=== PATIENT | male | born 1990 | race Hispanic/Latino ===

== ENCOUNTER 2024-12-15 12:29 | Emergency (ER) | payer OTHER ==
[~2024-12-15] VITALS: Ht 172.7 cm; Wt 106.1 kg
[2024-12-15 13:19] LABS: CREATININE 1.0 mg/dL (0.5-1.3); GLOMERULAR FILTR. RATE CALC 101.0 mL/min (>90); GLUCOSE,RANDOM 134.0 mg/dL (70-105); SODIUM SERUM 139.0 mmol/L (136-145); UREA NITROGEN, BLOOD 8.0 mg/dL (7-18)
[2024-12-15 13:22] LABS: IMMATURE GRANULOCYTE ABSOLUTE 0.02 K/uL (0-1); NUCLEATED RED BLOOD CELLS 0.0 % (0.0-0.19); PLATELET COUNT (AUTO) 290 K/uL (130-400); RED BLOOD CELL COUNT(AUTO) 5.29 MIL/uL (4.50-6.20); RED CELL DISTRIBUTION WIDTH 12.2 % (11.0-15.5); WHITE BLOOD COUNT (AUTO) 6.7 K/uL (4.8-10.8)
[2024-12-15] MEDS ORDERED: IOHEXOL-350 75 ML VIAL IV ONE (13:34)
[2024-12-15 13:48] LABS: APPEARANCE,URINE CLEAR (CLEAR); GLUCOSE, URINE (UA) NEGATIVE (NEGATIVE); LEUKOCYTE ESTERASE ,URINE NEGATIVE Leu/uL (NEGATIVE); NITRATE,URINE NEGATIVE (NEGATIVE); OCCULT BLOOD,URINE NEGATIVE (NEGATIVE)
[2024-12-15 13:57] LABS: ADD UA MICROSCOPIC NO
--- NOTE | 2024-12-15 13:59 | HMCIMG ---
EXAM: US Scrotum. CLINICAL HISTORY: testicual pain TECHNIQUE: Real-time ultrasound of the scrotum with color Doppler and image documentation. COMPARISON: None provided. FINDINGS: RIGHT TESTICLE: Normal in size and echogenicity, no abnormal mass. Normal Doppler flow. LEFT TESTICLE: Normal in size and echogenicity, no abnormal mass. Normal Doppler flow. EPIDIDYMIDES: The epididymes are normal in size and demonstrate Doppler flow within normal limits. SCROTUM: Inguinal hernia is seen on the left side with herniation of omental fat, measures approximately 3 x 1.4 x 2 cm. Dilated left pampiniform plexus of vein measuring 4 mm. No hydrocele or extratesticular mass seen. IMPRESSION: 1. Left inguinal hernia with herniation of omental fat. This may be further characterized with contrast-enhanced CT imaging of the abdomen and pelvis. 2. Left varicocele. /[place]
--- NOTE | 2024-12-15 14:32 | ERN ---
ED Note History of Present Illness Stated Complaint: ABD PAIN Chief Complaint: Abdominal Pain Time Seen by MD: 12:35 Time Seen by Midlevel: 12:38 Dictation: 34-year-old male coming in from the OR clinic for evaluation of bilateral testicular pain and bilateral lower abdominal pain going on for the last two months. Patient denies any fever, nausea vomiting or diarrhea. Past Medical History Past Medical History: Migraines Surgical History: None Review of System Dictation Constitutional: Negative for fever,chills, and weight loss Eyes: Negative for injury, pain,redness, and discharge ENT: Negative for injury,pain or swelling Cardiovascular: Negative for chest pain, palpitations, and edema Respiratory: Negative for shortness of breath, cough, and wheezing, Abdomen/GI: Lower abdominal pain Back: Negative for injury and pain : Negative for injury, bleeding and discharge, complaining of loud testicular pain MS/Extremity: Negative for injury and deformity Skin: Negative for rash, and discoloration Neuro: Negative for headache, weakness, numbness, tingling, and seizure Psych: Negative for suicide ideation, homicidal ideation, and hallucinations Review of Systems: was completed Initial Vital Sign VS Vital Signs Date Time Temp Pulse Resp B/P (MAP) Pulse Ox O2 Delivery O2 Flow Rate FiO2 12/15/24 12:35 98.2 87 18 119/66 99 12/15/24 14:42 Room Air* 0 21 Physical Exam Dictation General: awake, alert, NAD Head/Face: Normocephalic, atraumatic Eyes: PERRL, EOMI, vision at baseline ENT: oral cavity clear, TMs clear, no signs of infection Neck: Trachea midline, supple, no nuchal rigidity Cardiovascular: RRR, normal S1/S2, No MRGs, no JVD Respiratory: CTAB, no respiratory distress, No rales or wheezes Abdomen: Soft, non-tender, non-distended, normal bowel sounds, no guarding or rebound. Skin: Warm, dry, normal turgor, no rash MS/Extremity: Pulses equal, no cyanosis, neurovascular intact, FROM Neuro: COAx4, GCS 15, strength 5/5, CN 2-12 intact, normal cerebellar exam, normal gait, Psych: Normal behavior, mood, and affect normal Results (Laboratory/Radiology) Laboratory/Radiology Laboratory Tests Test 12/15/24 12:49 12/15/24 13:04 White Blood Count 6.7 K/uL (4.8-10.8) Red Blood Count 5.29 MIL/uL (4.50-6.20) Hemoglobin 16.2 g/dL (14.0-18.0) Hematocrit 47.4 % (42-54) Mean Corpuscular Volume 89.6 fL (79-99) Mean Corpuscular Hemoglobin 30.6 pg (27.0-33.0) Mean Corpuscular Hemoglobin Concent 34.2 g/dL (32.0-36.0) Red Cell Distribution Width 12.2 % (11.0-15.5) Platelet Count 290 K/uL (130-400) Mean Platelet Volume 11.7 fL (7.5-10.5) H Immature Granulocyte % (Auto) 0.3 % (0-1) Neutrophils (%) (Auto) 55.2 % (40.0-77.0) Lymphocytes (%) (Auto) 36.3 % (21.0-51.0) Monocytes (%) (Auto) 6.9 % (3.0-13.0) Eosinophils (%) (Auto) 0.9 % (0.0-8.0) Basophils (%) (Auto) 0.4 % (0.0-5.0) Neutrophils # (Auto) 3.7 K/uL (1.8-7.7) Lymphocytes # (Auto) 2.4 K/uL (1.0-4.8) Monocytes # (Auto) 0.5 K/uL (0.1-1.0) Eosinophils # (Auto) 0.06 K/uL (0.00-0.70) Basophils # (Auto) 0.03 K/uL (0.00-0.20) Absolute Immature Granulocyte (auto 0.02 K/uL (0-1) Nucleated Red Blood Cells 0.0 % (0.0-0.19) Sodium Level 139 mmol/L (136-145) Potassium Level 4.1 mmol/L (3.5-5.1) Chloride Level 102 mmol/L (101-111) Carbon Dioxide Level 28 mmol/L (21-32) Blood Urea Nitrogen 8 mg/dL (7-18) Creatinine 1.0 mg/dL (0.5-1.3) Glomerular Filtration Rate Calc 101 mL/min (>90) Random Glucose 134 mg/dL (70-105) H Total Calcium 9.0 mg/dL (8.5-10.1) Urine Color LIGHT-YELLOW (YELLOW) Urine Appearance CLEAR (CLEAR) Urine pH 5.5 (5.0-8.0) Urine Specific [place] 1.014 (1.001-1.031) Urine Protein NEGATIVE mg/dL (NEGATIVE) Urine Glucose (UA) NEGATIVE mg/dL (NEGATIVE) Urine Ketones NEGATIVE mg/dL (NEGATIVE) Urine Occult Blood NEGATIVE (NEGATIVE) Urine Nitrate NEGATIVE (NEGATIVE) Urine Bilirubin NEGATIVE mg/dL (NEGATIVE) Urine Urobilinogen 0.2 mg/dL (0.2-1.0) Urine Leukocyte Esterase NEGATIVE Jj/uL Labs Reviewed?: Yes Ultrasound Comment: [address] [address] IMAGING REPORT Signed PATIENT: MEME TANG MR#: [id number] : 1990 SEX: M AGE: 34 LOCATION: [facility] ORDER 41 STATUS: [facility] REPORT#: [id number] SERVICE [id number] REASON: testicual pain ORDERING PHYSICIAN: KRISTIAN DE LA CRUZ NP PROCEDURE: SCROTUM - US SCROTUM & CONTENTS EXAM: US Scrotum. CLINICAL HISTORY: testicual pain TECHNIQUE: Real-time ultrasound of the scrotum with color Doppler and image documentation. COMPARISON: None provided. FINDINGS: RIGHT TESTICLE: Normal in size and echogenicity, no abnormal mass. Normal Doppler flow. LEFT TESTICLE: Normal in size and echogenicity, no abnormal mass. Normal Doppler flow. EPIDIDYMIDES: The epididymes are normal in size and demonstrate Doppler flow within normal limits. SCROTUM: Inguinal hernia is seen on the left side with herniation of omental fat, measures approximately 3 x 1.4 x 2 cm. Dilated left pampiniform plexus of vein measuring 4 mm. No hydrocele or extratesticular mass seen. IMPRESSION: 1. Left inguinal hernia with herniation of omental fat. This may be further characterized with contrast-enhanced CT imaging of the abdomen and pelvis. 2. Left varicocele. /[place] DICTATED BY: CHIQUITA RIBERA Jr., MD DATE: 12/15/241456 ELECTRONICALLY SIGNED BY: CHIQUITA RIBERA Jr., MD DATE: 12/15/241456 CT Scan Comment: [place] [address] [place] [address] IMAGING REPORT Signed PATIENT: MEME TANG MR#: [id number] : 1990 SEX: M AGE: 34 LOCATION: [facility] ORDER 124 STATUS: REG REPORT#: [id number] SERVICE 39 REASON: thania lower abdominal pain ORDERING PHYSICIAN: KRISTIAN DE LA CRUZ NP PROCEDURE: ABD PEL W - CT ABDOMEN/PELVIS W/CONTRAST EXAM: CT Abdomen and Pelvis with IV contrast CLINICAL HISTORY: thania lower abdominal pain TECHNIQUE: Axial computed tomography images of the abdomen and pelvis with intravenous contrast. CONTRAST: with intravenous contrast. COMPARISON: None provided. FINDINGS: LUNG BASES: The lung bases appear clear. No pleural effusions are seen. LIVER: Hepatic steatosis. GALLBLADDER AND BILE DUCTS: The gallbladder appears within normal limits. No radioopaque gallstones are seen. No biliary ductal dilatation is evident. PANCREAS: Unremarkable. SPLEEN: Unremarkable. ADRENAL GLANDS: Unremarkable. KIDNEYS, URETERS, AND BLADDER: The kidneys appear within normal limits. There is no hydronephrosis or hydroureter. No urinary calculi are seen. STOMACH AND BOWEL: Unremarkable appearance of the stomach and bowel. No evidence of bowel obstruction. No evidence suggesting enteritis or colitis. APPENDIX: No evidence of acute appendicitis on CT examination. PERITONEUM: No free fluid. No free air. LYMPH NODES: No lymphadenopathy is evident. REPRODUCTIVE: Unremarkable as visualized. VASCULATURE: No evidence of abdominal aortic aneurysm. BONES: No aggressive appearing osseous lesion. No acute osseous pathology evident. IMPRESSION: 1. No acute intraabdominal or pelvic pathology. /[place] DICTATED BY: CHIQUITA RIBERA Jr., MD DATE: 12/15/241535 ELECTRONICALLY SIGNED BY: CHIQUITA RIBERA Jr., MD DATE: 12/15/246 ED Course ED Course Orders Procedure Category Date Status Time Cbc With Differential LAB 12/15/24 Complete 12:40 Basic Metabolic Panel LAB 12/15/24 Complete 12:40 Urinalysis Profile LAB 12/15/24 Complete 12:40 Ct Abdomen/Pelvis CT 12/15/24 Resulted W/Contrast 12:40 Us Scrotum & Contents US 12/15/24 Resulted 12:40 Iohexol (Omnipaque) PHA 12/15/24 Complete 13:34 Current Medications Medications (Trade) Dose Ordered Sig/[place] Route PRN Reason Start Time Stop Time Status Last Admin Dose Admin Iohexol (Omnipaque) 75 ml STK-MED ONCE IV 12/15/24 13:34 12/15/24 13:34 DC Vital Signs Date Time Temp Pulse Resp B/P (MAP) Pulse Ox O2 Delivery O2 Flow Rate FiO2 12/15/24 14:42 98.2 80 18 115/65 99 Room Air* 0 21 12/15/24 12:35 98.2 87 18 119/66 99 Medical Decision Making MDM MDM: 34-year-old male coming in from the OR clinic for evaluation of bilateral testicular pain and bilateral lower abdominal pain going on for the last two months. Patient denies any fever, nausea vomiting or diarrhea.Blood work unremarkable. Ultrasound shows Inguinal hernia in the left side with herniation of omental fat noted. CT scan of the abdomen and pelvis is normal. Discussed findings with the patient. Educated patient [facility] and has a consult outpatient with general surgery for hernia repair. Educated to take Tylenol or Motrin [id number] for pain control follow [facility] with [facility]. Differential diagnosis: Diverticulitis, appendicitis, orchitis, epididymitis Rationale: Tests considered and ordered secondary to shared decision making include: Previous outside records reviewed: Old ER visits. Risk of complication and/or morbidity or mortality of patient management: None Medications-Per medication reconciliation Need for hospitalization: Patient does not meet criteria for hospitalization. Need for emergency major/minor surgery: No There are no social concerns with this patient. Prescription drug management Prescriptions will include symptomatic care Patient's prior external medical records from other ER visits were reviewed by me as indicated. Prior testing and results from previous visits were reviewed. Prior tests were taken into account with medical decision making and resource utilization, independent historian/historians were used to obtain complete medical history. I independently interpreted the test that were performed, results were reviewed by me and considered findings on radiology if ordered. Medical management and examination interpretation discussions were had by me with other qualified healthcare professionals as indicated for the patient's care. DX & DISP Disposition: Discharge Departure Impression: Primary Impression: Left inguinal hernia Condition: Stable Additional Instructions: [facility] as [facility] might need a consult with General [facility]. Take Tylenol Motrin [id number] for pain control. Referrals: JULIOCESAR PIEDRA MD (PCP) XIAO WALTON MD Time of Disposition: 15:28 I have reviewed the case, and I agree with, Diagnosis and Plan KRISTIAN DE LA CRUZ NP Dec 15, 2024 14:32
--- NOTE | 2024-12-15 14:36 | HMCIMG ---
EXAM: CT Abdomen and Pelvis with IV contrast CLINICAL HISTORY: thania lower abdominal pain TECHNIQUE: Axial computed tomography images of the abdomen and pelvis with intravenous contrast. CONTRAST: with intravenous contrast. COMPARISON: None provided. FINDINGS: LUNG BASES: The lung bases appear clear. No pleural effusions are seen. LIVER: Hepatic steatosis. GALLBLADDER AND BILE DUCTS: The gallbladder appears within normal limits. No radioopaque gallstones are seen. No biliary ductal dilatation is evident. PANCREAS: Unremarkable. SPLEEN: Unremarkable. ADRENAL GLANDS: Unremarkable. KIDNEYS, URETERS, AND BLADDER: The kidneys appear within normal limits. There is no hydronephrosis or hydroureter. No urinary calculi are seen. STOMACH AND BOWEL: Unremarkable appearance of the stomach and bowel. No evidence of bowel obstruction. No evidence suggesting enteritis or colitis. APPENDIX: No evidence of acute appendicitis on CT examination. PERITONEUM: No free fluid. No free air. LYMPH NODES: No lymphadenopathy is evident. REPRODUCTIVE: Unremarkable as visualized. VASCULATURE: No evidence of abdominal aortic aneurysm. BONES: No aggressive appearing osseous lesion. No acute osseous pathology evident. IMPRESSION: 1. No acute intraabdominal or pelvic pathology. /[place]
[2024-12-15 15:36] VITALS: BP 115/65; PULSE 80; RESP 18; TEMP 98.2; O2SAT 99
== END 2024-12-15 15:37 | disposition home or self-care (01) ==
LOC: EDH 12:29
DX: K40.90 Unilateral inguinal hernia, without obstruction or gangrene, not specified as recurrent (principal); G43.909 Migraine, unspecified, not intractable, without status migrainosus
CPT/HCPCS: 99285; 74177; 80048; 85025; 81003; 36415; 76870; Q9967